=== PATIENT | male | born 2000 | race African-American/Black ===

== ENCOUNTER 2023-07-23 21:01 | Emergency (ER) | payer OTHER ==
[~2023-07-23] VITALS: Ht 180.3 cm; Wt 77.1 kg
[2023-07-23 21:02] VITALS: BP_SYST 127; PULSE 100; RESP 20; TEMP 98.8; O2SAT 96
[2023-07-23] MEDS ORDERED: BUPRENORPHINE HCL/NALOXONE HCL 2-0.5 MG 1 EACH TAB.SUBL SL ONE (21:15)
[2023-07-24 00:34] VITALS: BP_SYST 119; PULSE 76; RESP 20; TEMP 98; O2SAT 98
== END 2023-07-24 00:34 | disposition home or self-care (01) ==
LOC: SED 21:01
DX: T40.411A Poisoning by fentanyl or fentanyl analogs, accidental (unintentional), initial encounter (principal); Z79.899 Other long term (current) drug therapy; Y92.89 Other specified places as the place of occurrence of the external cause
CPT/HCPCS: 99283